=== PATIENT | male | born 1965 | race Caucasian/White ===

== ENCOUNTER 2021-05-21 21:48 | Emergency (ER) | payer BC ==
[~2021-05-21] VITALS: Ht 175.3 cm; Wt 63.5 kg
--- NOTE | 2021-05-21 21:55 | NUR ---
PT BIB [facility] 87 FROM HOME C/O RLQ ABD PAIN. A/O X4, NO SOB OR LABORED BREATHING, AFEBRILE.
[2021-05-21] MEDS ORDERED: MORPHINE SULFATE 4 MG/1 ML DISP.SYRIN IV ONE (22:00)
--- NOTE | 2021-05-21 22:01 | NUR ---
DR. CHRISTENSEN AT BEDSIDE, MSE IN PROGRESS.
[2021-05-21] MEDS ORDERED: ONDANSETRON 4 MG/2 ML VIAL IV ONE (22:15)
[2021-05-21] MEDS ORDERED: MORPHINE SULFATE 4 MG/1 ML DISP.SYRIN ONE (22:23)
[2021-05-21] MEDS ORDERED: ONDANSETRON 4 MG/2 ML VIAL ONE (22:23)
[2021-05-21] MEDS ORDERED: MORPHINE SULFATE 2 MG/1 ML DISP.SYRIN ONE (22:23)
[2021-05-21 22:25] LABS: HEMATOCRIT 40.3 % (36.7-47.1); MEAN CORPUSCULAR HEMOGLOBIN 29.8 uug (23.8-33.4); MEAN CORPUSCULAR VOLUME 86.7 fL (73.0-96.2); PLATELET COUNT (AUTO) 221 K/uL (152-348)
--- NOTE | 2021-05-21 22:27 | NUR ---
WAITING FOR LABS FOR CT W/ CONTRAST
[2021-05-21 22:37] LABS: BILIRUBIN,TOTAL 0.5 mg/dL (0.2-1.0); CREATININE 1.1 mg/dL (0.6-1.3); POTASSIUM 4.6 mmol/L (3.5-5.1); TOTAL PROTEIN, SERUM 7.7 g/dL (6.4-8.2)
[2021-05-21] MEDS: IV NORMAL SALINE 1000 ML BAG IV ONE ×2 (22:40→23:45)
[2021-05-21] MEDS ORDERED: IV NORMAL SALINE 250 ML IV ONE (22:41)
[2021-05-21] MEDS ORDERED: IOHEXOL 300MG/ML 100 ML INFUS..BTL ONE (22:41)
[2021-05-21] MEDS ORDERED: SWABABLE VALVE TRANSFER SET EA MC ONE (22:41)
--- NOTE | 2021-05-21 22:43 | NUR ---
PT TAKEN DOWN FOR CT.
--- NOTE | 2021-05-21 22:56 | NUR ---
RETURNED FROM CT.
[2021-05-21] MEDS ORDERED: IV NORMAL SALINE 1000 ML BAG IV ONE (23:00)
[2021-05-21] MEDS ORDERED: TAMSULOSIN HCL 0.4 MG CAP.SR.24H PO ONE (23:45)
[2021-05-21] MEDS ORDERED: KETOROLAC TROMETHAMINE 30 MG INJ IVP ONE (23:45)
[2021-05-21] MEDS ORDERED: KETOROLAC TROMETHAMINE 30 MG INJ ONE (23:50)
[2021-05-21] MEDS ORDERED: TAMSULOSIN HCL 0.4 MG CAP.SR.24H ONE (23:50)
[2021-05-22 01:16] LABS: *BILIRUBIN,URIN NEGATIVE (NEGATIVE); *BLOOD, URINE 2+ (NEGATIVE); *CLARITY,URINE CLEAR (CLEAR); *COLOR,URINE YELLOW (YELLOW); *KETONES,URINE TRACE (NEGATIVE); *UROBILINOGEN,URINE 0.2 E.U./dl (NORMAL); LEUKOCYTE ESTERASE ,URINE NEGATIVE (NEGATIVE); NITRITE, URINE NEGATIVE (NEGATIVE); PH,URINE 5.5 (5.0-8.0); UGLUCOSE NEGATIVE (NEGATIVE)
[2021-05-22 01:29] LABS: BACTERIA,URINE NONE SEEN /HPF (NONE SEEN); SQUAMOUS EPITHELIAL CELL,UR NONE SEEN /HPF (NONE SEEN); WBC,URINE NONE SEEN /HPF (0-3)
[2021-05-22] MEDS ORDERED: TAMS-3 PO (01:31)
--- NOTE | 2021-05-22 02:00 | NUR ---
Patient discharged to home in stable condition. Denies any pain/discomfort upon discharge. Steady gait.Denies n/v/d. Written and verbal after care instructions given. Patient verbalizes understanding of instructions. Stressed follow up or return to ER for worsening s/s. Picked up by .
[2021-05-22 02:35] VITALS: BP 117/59
== END 2021-05-22 02:10 | disposition home or self-care (01) ==
LOC: ER 21:50
DX: N13.2 Hydronephrosis with renal and ureteral calculous obstruction (principal); R10.31 Right lower quadrant pain; Z20.822 Contact with and (suspected) exposure to COVID-19
CPT/HCPCS: 36415; 74177; 80053; 81001; 83690; 85025; 87426; 96361; 96374; 96375; 99285; J1885; J2270 ×2; J2405; Q9967; A4663; J7030; J7050